=== PATIENT | female | born 1935 | race Caucasian/White ===

== ENCOUNTER 2017-04-25 03:55 | Emergency (ER) | payer MEDICARE ==
[2017-04-25 07:25] LABS: HEMOGLOBIN 11.5 gm/dl (12.3-15.3); RED BLOOD COUNT 3.61 M/UL (4.00-5.10); WHITE BLOOD COUNT 8.6 K/UL (4.5-11.0)
[2017-04-25 08:02] LABS: BUN/CREATININE RATIO 15 (0-10)
== END 2017-04-25 08:35 | disposition home or self-care (01) ==
LOC: ER1 03:55
PROVIDERS: Physician Assistant
DX: J20.9 Acute bronchitis, unspecified (principal); I10 Essential (primary) hypertension; Z88.1 Allergy status to other antibiotic agents; Z79.899 Other long term (current) drug therapy
CPT/HCPCS: 36415; 71020; 80053; 82550; 82553; 83874; 84484; 85025; 93005; 94664; 96374; 99285; J2930

== ENCOUNTER → 2021-09-14 | Outpatient (CLI) | payer MEDICARE ==
[~2021-09-14] MED LIST: AMBIEN10 MG PO; BACTRIM 400-801 EACH PO; BUSPIRONE HCL5 MG PO; CEFUROXIME500 MG PO; DIOVAN160 MG PO; KEFLEX CAP 500500 MG PO; LEXAPRO10 MG PO; LIBRAX CAPSULE1 EACH PO; LOPRESSOR50 MG PO; NORCO 7.5-3251 EACH PO; ONDANSETRON ODT4 MG PO; PEPCID40 MG PO; ROPINIROLE HCL1 MG PO; ZOFRAN4 MG PO; ZOVIRAX400 MG PO
== END ==
LOC: EXRD 09:30 → US 09:30 → EXRD 10:08
DX: R11.0 Nausea (principal); R10.11 Right upper quadrant pain; Z90.49 Acquired absence of other specified parts of digestive tract
CPT/HCPCS: 76705

== ENCOUNTER 2022-04-19 13:42 | Inpatient (IN) | payer MEDICARE ==
[~2022-04-19] VITALS: Ht 160 cm; Wt 87.9 kg
[2022-04-19 15:42] LABS: RED BLOOD COUNT 3.88 M/UL (4.00-5.10); WHITE BLOOD COUNT 5.6 K/UL (4.5-11.0)
[2022-04-19 16:41] LABS: BUN/CREATININE RATIO 15 (0-10)
[2022-04-19] MEDS ORDERED: HYDROCHLOROTH12.5 MG PO (18:23)
[2022-04-19] MEDS ORDERED: DIOVAN160 MG PO (18:24)
[2022-04-19] MEDS ORDERED: ELIQUIS5 MG PO (18:24)
[2022-04-19] MEDS ORDERED: SERTRALINE HCL100 MG PO (18:25)
[2022-04-19] MEDS ORDERED: BENTYL 20MG TAB20 MG PO (18:26)
[2022-04-19] MEDS ORDERED: AMBIEN5 MG PO (18:27)
[2022-04-19] MEDS ORDERED: TOPROL XL50 MG PO (18:28)
[2022-04-19] MEDS ORDERED: ROPINIROLE HCL2 MG PO (18:29)
[2022-04-19] MEDS ORDERED: COLESTIPOL HCL1 GM PO (18:30)
[2022-04-19] MEDS ORDERED: LOPRESSOR 50 MG50 MG PO (20:42)
[2022-04-19] MEDS ORDERED: HYDROXYZINE PAM25 MG PO (20:46)
[2022-04-20 02:04] LABS: HEMOGLOBIN 11.8 gm/dl (12.3-15.3); RED BLOOD COUNT 3.75 M/UL (4.00-5.10)
[2022-04-20 02:09] LABS: WHITE BLOOD COUNT 7.1 K/UL (4.5-11.0)
[2022-04-20 02:38] LABS: BUN/CREATININE RATIO 12 (0-10)
[2022-04-21 01:53] LABS: HEMOGLOBIN 11.5 gm/dl (12.3-15.3); RED BLOOD COUNT 3.68 M/UL (4.00-5.10); WHITE BLOOD COUNT 6.6 K/UL (4.5-11.0)
[2022-04-21] MEDS ORDERED: AMOX TR-K CLV1 EAC4 PO (10:40)
--- NOTE | 2022-04-21 11:26 | NUR ---
PT DID NOT WANT TO HAVE CONSULT WITH OUR IN HOUSE [facility]TH[facility] DOCTORS PER DR FAM RECOMMENDATION. PT STATES THAT SHE IS ALREADY ESTABLISHED WITH DR CAIN IN [place] [facility]. CONSULT CANCELLED PER PATIENT REQUEST.
== END 2022-04-21 16:40 | disposition home or self-care (01) | DRG 309 ==
LOC: ER1 13:42 → PROG CARE 16:45 → CDU 16:45 → PROG CARE 19:58
PROVIDERS: Emergency Medicine; Internal Medicine; Physician Assistant; ADMIT Internal Medicine
PROC: B24BZZZ Ultrasonography of Heart with Aorta (ICD-10-PCS; principal; 2022-04-20)
DX: I48.0 Paroxysmal atrial fibrillation (principal); M62.82 Rhabdomyolysis; N30.00 Acute cystitis without hematuria; Z20.822 Contact with and (suspected) exposure to COVID-19; R29.6 Repeated falls; M48.061 Spinal stenosis, lumbar region without neurogenic claudication; F41.9 Anxiety disorder, unspecified; I16.0 Hypertensive urgency; E87.6 Hypokalemia; S09.90XA Unspecified injury of head, initial encounter; G25.81 Restless legs syndrome; G47.00 Insomnia, unspecified; I08.1 Rheumatic disorders of both mitral and tricuspid valves; W18.30XA Fall on same level, unspecified, initial encounter; I27.20 Pulmonary hypertension, unspecified; Z90.49 Acquired absence of other specified parts of digestive tract; Z90.710 Acquired absence of both cervix and uterus; Z88.2 Allergy status to sulfonamides; Z88.8 Allergy status to other drugs, medicaments and biological substances; Z82.49 Family history of ischemic heart disease and other diseases of the circulatory system; Z91.041 Radiographic dye allergy status
CPT/HCPCS: ECHO; 36415; 70450; 71046; 72125; 73552; 80053; 81001; 82550; 82553; 83735; 84484; 85025; 86140; 87040; 87086; 93005; 93306; 97161; 97166; 97530; 97530-GP-CQ; 97535; 99285; J0360; J0696; J3475; Q0177